=== PATIENT | female | born 1965 | race Caucasian/White ===

== ENCOUNTER 2022-09-02 11:17 | Emergency (ER) | payer OTHER | END 2022-09-02 12:50 | disposition home or self-care (01) | LOC: CSHERS 11:17 | DX: S82.831A Other fracture of upper and lower end of right fibula, initial encounter for closed fracture (principal); E11.9 Type 2 diabetes mellitus without complications; I10 Essential (primary) hypertension; X50.9XXA Other and unspecified overexertion or strenuous movements or postures, initial encounter ==

== ENCOUNTER 2023-12-22 06:53 | Emergency (ER) | payer SELFPAY ==
[2023-12-22 07:30] LABS: #Basophils 0.04 10x3/uL (0.0-0.2); #Eosinphils 0.17 10x3/uL (0.0-0.5); #Monocytes 0.98 10x3/uL (0.0-1.1); #Neutrophils 6.79 10x3/uL (1.5-8.4); %Basophils 0.3 % (0.0-2.0); %Eosinophils 1.5 % (0.0-6.0); %Lymphocytes 30.9 % (18.0-47.0); %Monocytes 8.4 % (0.0-10.0); %Neutrophils 58.6 % (40.0-75.0); Hematocrit 34.9 % (34.9-44.5); Mean Corpuscular HGB CONC 31.5 g/dL (32.0-36.0); Mean Corpuscular Hemoglobin 30.7 pg (27.0-33.0); Mean Corpuscular Volume 97.5 fL (81.6-98.3); Mean Platelet Volume 10.8 fL (7.4-10.4); Platelet Count 233 10x3/uL (150-450); RBC Distribution Width 13.5 % (11.5-14.5); Red Blood Cell (RBC) Count 3.58 10x6/uL (3.90-5.03); White Blood Cell (WBC) Count 11.6 10x3/uL (3.5-10.5)
[2023-12-22] MEDS ORDERED: Aspirin Chewable 81 MG TAB ONE (07:33)
[2023-12-22] MEDS ORDERED: Nitroglycerin 0.4 MG TAB 1 EACH ONE (07:34)
[2023-12-22 07:43] LABS: ALT (SGPT) 20 U/L (8-55); AST (SGOT) 28 U/L (5-34); Albumin 3.1 g/dL (3.5-5.0); Alkaline Phosphatase 136 U/L (40-110); Anion Gap 15 mmol/L (10-20); BUN (Urea Nitrogen) 46 mg/dL (9.8-20.1); Bilirubin, Total 0.2 mg/dL (0.2-1.2); Calc. Creatinine Clearance 0 mL/min (70-130); Carbon Dioxide 20 mmol/L (22-29); Chloride 112 mmol/L (98-107); Estimated GFR 27; Globulin 3.9 g/dL (2.4-3.5); Glucose 55 mg/dL (70-105); Potassium 4.1 mmol/L (3.5-5.1); Sodium 143 mmol/L (136-145)
[2023-12-22 07:44] LABS: Troponin I 0.098 ng/mL (< 0.028)
[2023-12-22] MEDS ORDERED: Dextrose 50% Abboject 50 ML SYRINGE ONE (07:44)
[2023-12-22] MEDS ORDERED: Furosemide 40 MG (4 mL) VIAL ONE (09:20)
[2023-12-22 10:34] LABS: Troponin I 0.078 ng/mL (< 0.028)
== END 2023-12-22 11:29 | disposition home or self-care (01) ==
LOC: CSHERS 06:53
DX: N17.9 Acute kidney failure, unspecified (principal); I50.9 Heart failure, unspecified; E11.9 Type 2 diabetes mellitus without complications; I13.0 Hypertensive heart and chronic kidney disease with heart failure and stage 1 through stage 4 chronic kidney disease, or unspecified chronic kidney disease; E11.22 Type 2 diabetes mellitus with diabetic chronic kidney disease; N18.30 Chronic kidney disease, stage 3 unspecified; Z79.82 Long term (current) use of aspirin; Z79.899 Other long term (current) drug therapy; Z79.4 Long term (current) use of insulin
CPT/HCPCS: 36415; 36416; 71045; 80053; 83880; 84484; 85025; 93005; 93010; 96374; 96375; J1940; J7999

== ENCOUNTER 2024-04-13 04:43 | Emergency (ER) | payer SELFPAY ==
[2024-04-13] MEDS ORDERED: Nitroglycerin 2% Ointment 1 INCH/1 GM Packet ONE (04:59)
[2024-04-13] MEDS ORDERED: Aspirin Chewable 81 MG TAB ONE (04:59)
[2024-04-13] MEDS ORDERED: Labetalol HCl 100 MG/20 ML VIAL ONE (05:00)
[2024-04-13 05:26] LABS: #Basophils 0.03 10x3/uL (0.0-0.2); #Eosinophils 0.06 10x3/uL (0.0-0.5); #Monocytes 0.96 10x3/uL (0.0-1.1); #Neutrophils 5.63 10x3/uL (1.5-8.4); %Basophils 0.4 % (0.0-2.0); %Eosinophils 0.7 % (0.0-6.0); %Lymphocytes 19.2 % (18.0-47.0); %Monocytes 11.5 % (0.0-10.0); %Neutrophils 67.6 % (40.0-75.0); Hematocrit 36.5 % (34.9-44.5); Hemoglobin 11.2 g/dL (12.0-15.5); Mean Corpuscular HGB CONC 30.7 g/dL (32.0-36.0); Mean Corpuscular Hemoglobin 30.9 pg (27.0-33.0); Mean Corpuscular Volume 100.6 fL (81.6-98.3); Mean Platelet Volume 10.4 fL (7.4-10.4); Platelet Count 213 10x3/uL (150-450); RBC Distribution Width 13.4 % (11.5-14.5); Red Blood Cell (RBC) Count 3.63 10x6/uL (3.90-5.03); White Blood Cell (WBC) Count 8.3 10x3/uL (3.5-10.5)
[2024-04-13 05:36] LABS: Actual Bicarbonate (HCO3v) 20.4 mEq/L (22-28); Analyzer IN Cardio CS ER; Base Excess -4.6 mEq/L (-2 - +2); Calcium, Ionized (venous) 1.12 mmol/L (1.16-1.32); Chloride (VBG) 105 mmol/L (98-106); Hematocrit-VBG 35 % (36.0-47.0); Puncture Site Other Site; Sodium 138 mmol/L (133-146); pH (venous) 7.354 (7.32-7.43)
[2024-04-13 05:44] LABS: ALT (SGPT) 13 U/L (8-55); AST (SGOT) 31 U/L (5-34); Albumin 2.8 g/dL (3.4-4.8); Alkaline Phosphatase 139 U/L (40-110); Anion Gap 17 mmol/L (10-20); BUN (Urea Nitrogen) 26 mg/dL (9.8-20.1); Bilirubin, Total 0.3 mg/dL (0.2-1.2); Calc. Creatinine Clearance 0 mL/min (70-130); Calcium 8.6 mg/dL (7.8-10.44); Carbon Dioxide 18 mmol/L (23-31); Chloride 107 mmol/L (98-107); Estimated GFR 24; Globulin 3.9 g/dL (2.4-3.5); Glucose 151 mg/dL (80-115); Potassium 4.9 mmol/L (3.5-5.1); Protein, Total 6.7 g/dL (5.8-8.1); Sodium 137 mmol/L (136-145); Troponin I 0.868 ng/mL (< 0.028)
[2024-04-13] MEDS ORDERED: LevoFLOXacin 750 mg/D5W 150 ml Premix Bag ONE (05:54)
[2024-04-13] MEDS ORDERED: Furosemide 40 MG (4 mL) VIAL ONE (05:54)
[2024-04-13] MEDS ORDERED: Enoxaparin 120 MG/0.8 ML SYRINGE SC ONE (06:14)
[2024-04-13 06:32] LABS: PTT 27.6 sec (22.0-33.0); Prothrombin Time 11.3 sec (9.5-12.1)
[2024-04-13 07:59] LABS: Critical Call Chem Troponin I ERS.JM3 @0759; Troponin I 0.797 ng/mL (< 0.028)
[2024-04-13] MEDS ORDERED: methylPREDNISolone Sod Succ/PF 125 MG/2 ML VIAL ONE (08:09)
[2024-04-13] MEDS ORDERED: Ipratropium/Albuterol 3 ML NEB ONE (08:13)
== END 2024-04-13 09:00 | disposition home or self-care (01) ==
LOC: CSHERS 04:43
DX: I21.4 Non-ST elevation (NSTEMI) myocardial infarction (principal); I13.0 Hypertensive heart and chronic kidney disease with heart failure and stage 1 through stage 4 chronic kidney disease, or unspecified chronic kidney disease; E11.22 Type 2 diabetes mellitus with diabetic chronic kidney disease; N18.30 Chronic kidney disease, stage 3 unspecified; I50.9 Heart failure, unspecified; E11.319 Type 2 diabetes mellitus with unspecified diabetic retinopathy without macular edema; Z79.82 Long term (current) use of aspirin; Z79.84 Long term (current) use of oral hypoglycemic drugs; Z79.899 Other long term (current) drug therapy
CPT/HCPCS: 36415; 71045; 80053; 82805; 83605; 83880; 84484; 85025; 85610; 85730; 87040; 93005; 94760; 96372; 96374; 96375; J1650; J1940; J1956; J2919; J7620

== ENCOUNTER 2025-03-24 11:02 | Emergency (ER) | payer OTHER ==
[2025-03-24 11:57] LABS: Hematocrit 39.0 % (34.9-44.5); Hemoglobin 11.9 g/dL (12.0-15.5); Mean Corpuscular Hemoglobin 29.8 pg (27.0-33.0); Mean Corpuscular Volume 97.5 fL (81.6-98.3); Platelet Count 239 10x3/uL (150-450); Red Blood Cell (RBC) Count 4.00 10x6/uL (3.90-5.03); White Blood Cell (WBC) Count 8.31 10x3/uL (3.5-10.5)
[2025-03-24 11:58] LABS: #Basophils 0.03 10x3/uL (0.0-0.2); #Eosinophils 0.08 10x3/uL (0.0-0.5); #Monocytes 0.59 10x3/uL (0.0-1.1); #Neutrophils 6.36 10x3/uL (1.5-8.4); %Basophils 0.4 % (0.0-2.0); %Eosinophils 1.0 % (0.0-6.0); %Lymphocytes 14.8 % (18.0-47.0); %Monocytes 7.1 % (0.0-10.0); %Neutrophils 76.5 % (40.0-75.0)
[2025-03-24 12:10] LABS: ALT (SGPT) 16 U/L (Less than 34); AST (SGOT) 33 U/L (11-34); Albumin 3.3 g/dL (3.1-4.5); Alkaline Phosphatase 111 U/L (40-110); Anion Gap 15 mmol/L (10-20); BUN (Urea Nitrogen) 38 mg/dL (9.8-20.1); Bilirubin, Total 0.4 mg/dL (0.3-1.2); Calc. Creatinine Clearance 0 mL/min (70-130); Calcium 8.9 mg/dL (7.8-10.44); Carbon Dioxide 20 mmol/L (23-31); Chloride 110 mmol/L (98-107); Globulin 3.4 g/dL (2.4-3.5); Glucose 62 mg/dL (80-115); Potassium 4.8 mmol/L (3.5-5.1); Sodium 140 mmol/L (136-145)
[2025-03-24 12:16] LABS: Troponin I 0.013 ng/mL (< 0.028)
[2025-03-24] MEDS ORDERED: Furosemide 40 MG (4 mL) VIAL ONE (16:16)
== END 2025-03-24 22:48 | disposition short-term general hospital (02) ==
LOC: CSHERS 11:02
DX: J90 Pleural effusion, not elsewhere classified (principal); N17.9 Acute kidney failure, unspecified; I13.0 Hypertensive heart and chronic kidney disease with heart failure and stage 1 through stage 4 chronic kidney disease, or unspecified chronic kidney disease; E11.22 Type 2 diabetes mellitus with diabetic chronic kidney disease; N18.4 Chronic kidney disease, stage 4 (severe); I50.9 Heart failure, unspecified; E87.79 Other fluid overload; E11.319 Type 2 diabetes mellitus with unspecified diabetic retinopathy without macular edema
CPT/HCPCS: 71045; 80053; 83880; 84484; 85025; 93005; 96374; J1940